=== PATIENT | female | born 1980 | race Caucasian/White ===

== ENCOUNTER 2022-01-15 08:17 | Emergency (ER) | payer SELFPAY ==
[~2022-01-15] VITALS: Ht 185 cm; Wt 99.0 kg
[~2022-01-15 08:17] MED LIST: AZIT-21 PO; CEFD300C3 PO; CEPH500C PO; HYDR-757 PO; NAPR-243 PO; NAPR-684 PO; PENI500T PO; PRD20T PO; TRM50T PO
[2022-01-15 08:25] VITALS: BP 126/80
--- NOTE | 2022-01-15 11:58 | ED General ---
General Chief Complaint: COVID19 Suspect/Confirmed Stated Complaint: N/V/D - WEAKNESS - SOA - COUGH - CONGESTION Nursing Triage Note: ARRIVED VIA AMB TO ROOM 06 WITH COMPLAINTS OF SOA, WEAKNESS, AND DIARRHEA STARTING ON SUNDAY. PT WORKS IN A [employer] WHERE THERE HAS BEEN POSITIVE PTS. History of Present Illness Date Seen by Provider: Jan 15, 2022 Time Seen by Provider: 08:26 Initial Comments Chief complaint and report from nurse was reviewed. COVID-19 and influenza testing was ordered. Results were communicated to the patient. She decided not to wait for evaluation by physician and left without being examined. Patient was observed by me to be ambulatory and walked to the bathroom multiple times during her stay here. She was not in any distress. Allergies and Home Medications Allergies Coded Allergies: No Known Allergies (Verified Allergy, Unknown, 09/03/05) Patient Home Medication List Home Medication List Reviewed: Yes Azithromycin (Zithromax Tab) 250 Mg Tab, 1 TAB PO DAILY Prescribed by: CURT LUBIN on 07/18/131850 Naproxen (Naproxen) 250 Mg Tablet, 1 EA PO TID PRN for PAIN Prescribed by: CURT LUBIN on 07/18/131850 Review of Systems Review of Systems Constitutional: see HPI EENTM: no symptoms reported Respiratory: see HPI Cardiovascular: no symptoms reported Gastrointestinal: see HPI Genitourinary: no symptoms reported : No Past Bqtqbup-Iuatyc-Ctuinz Hx Patient Social History Tobacco Use?: Yes Smoking Status: Current Everyday Smoker Substance use?: Yes Substance type: Marijuana Alcohol Use?: No Immunizations Up To Date Second COVID19 Vaccination Tariq: UNKNOWN DATE COVID19 Vaccine Hot Die Picker: QI Past Medical History Adverse Reaction/Blood Tranf: No Physical Exam Vital Signs Vital Signs - First Documented 01/15/22 08:25 Temp 36.4 Pulse 74 Resp 16 B/P (MAP) 126/80 (95) Pulse Ox 98 O2 Delivery Room Air Capillary Refill : Less Than 3 Seconds Height, Weight, BMI Height: '" Weight: 290lbs. oz. 131.999120gz; 28.00 BMI Method:Stated General Appearance: No Apparent Distress Progress/Results/Core Measures Suspected Sepsis SIRS Temperature: Pulse: 74 Respiratory Rate: 16 Blood Pressure 126 /80 Mean: 95 Results/Orders Lab Results Laboratory Tests Test 01/15/22 08:30 Range/Units Influenza Type A (RT-PCR) Not Detected Not Detecte Influenza Type B (RT-PCR) Not Detected Not Detecte SARS-CoV-2 RNA (RT-PCR) Not Detected Not Detecte My Orders Orders - OTILIA PENA MD Covid 19 Inhouse Test (01/15/22 08:26) Influenza A And B By Pcr (01/15/22 08:26) Vital Signs/I&O 01/15/22 08:25 Temp 36.4 Pulse 74 Resp 16 B/P (MAP) 126/80 (95) Pulse Ox 98 O2 Delivery Room Air Capillary Refill : Less Than 3 Seconds 2 Blood Pressure Mean: 95 Departure Impression Primary Impression: Diarrhea Qualified Codes: R19.7 - Diarrhea, unspecified Additional Impressions: Shortness of breath Weakness Patient left without being seen Disposition: 07 AGAINST MEDICAL ADVICE Condition: Against Medical Advice Departure-Patient Inst. Referrals: [facility] (PCP) Primary Care Physician OTILIA PENA MD Jan 15, 2022 11:58
== END 2022-01-15 11:55 | disposition left against medical advice (07) ==
LOC: EDUNIT# 08:17 → ER 08:19
DX: R19.7 Diarrhea, unspecified (principal); R53.1 Weakness; R06.02 Shortness of breath; F17.200 Nicotine dependence, unspecified, uncomplicated; Z20.822 Contact with and (suspected) exposure to COVID-19
CPT/HCPCS: 87636; 99283